=== PATIENT | male | born 1945 | race Hispanic/Latino ===

== ENCOUNTER 2017-11-24 10:20 | Outpatient (CLI) | payer MEDICARE, OTHER ==
[2017-11-24 11:30] LABS: Blood Urea Nitrogen 19 mg/dL (9-20)
--- NOTE | 2017-11-24 15:00 | Cat Scan Report ---
FINAL REPORT EXAM: CT ANGIO ABD/FEMORAL ABD AORTA HISTORY: CHRONIC VENOUS HYPERTENSION TECHNIQUE: CT angiography of the abdomen and pelvis performed. CT runoff of lower extremities performed. IV contrast was administered. Axial images and coronal and sagittal reformatted images were obtained. PRIORS: None. FINDINGS: There are coronary artery atherosclerotic calcifications. There is some dependent atelectasis at the lung bases. The visualized liver, spleen, pancreas, and adrenal glands demonstrate no significant abnormalities. There are multiple renal cysts. There are aortoiliac atherosclerotic calcifications. There is an abdominal aortic aneurysm extending from immediate infrarenal region to the bifurcation. Maximum diameter is about 3.9 cm. The celiac trunk/axis, SMA, renal arteries and ROSEANN are patent. There is no evidence of intestinal obstruction. The appendix is normal. There are no abnormal fluid collections seen. There is no free intraperitoneal air. The bladder is unremarkable. There is no abnormal pelvic mass or fluid collections seen. On the left side there is patency of arteries from the groin to the foot. There is moderate stenosis involving the proximal to mid left superficial femoral artery. On the left side there also atherosclerotic calcifications. The left superficial femoral artery appears mostly occluded from its proximal to distal aspect. Flow is reconstituted in the distal femoral artery, popliteal, and calf arteries. Flow is seen to the foot and ankle. IMPRESSION: There are atherosclerotic calcifications bilaterally involving femoral arteries. 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 Flow is reconstituted in the distal femoral artery, and there is flow into the calf and foot on the right. On the left side there is long segment moderate stenosis of the proximal to mid superficial femoral artery. Flow is, however, maintained down to the foot/ankle. The CT abdominal images demonstrate aortoiliac atherosclerosis with mid to distal abdominal aortic aneurysm measuring 3.9 cm maximum dimension. Multiple renal cysts. Coronary artery calcifications.
== END 2017-11-24 10:21 | disposition home or self-care (01) ==
LOC: CT 10:20
PROVIDERS: ATTEND Surgery Vascular Surgery
DX: I70.213 Atherosclerosis of native arteries of extremities with intermittent claudication, bilateral legs (principal); I87.323 Chronic venous hypertension (idiopathic) with inflammation of bilateral lower extremity; I71.4 Abdominal aortic aneurysm, without rupture; I10 Essential (primary) hypertension; E78.5 Hyperlipidemia, unspecified; I25.10 Atherosclerotic heart disease of native coronary artery without angina pectoris; N28.1 Cyst of kidney, acquired; J98.11 Atelectasis; I70.0 Atherosclerosis of aorta; Z72.0 Tobacco use
CPT/HCPCS: 36415; 75635; 82565; 84520; Q9967